=== PATIENT | female | born 1990 | race Caucasian/White ===

== ENCOUNTER 2019-05-17 14:23 | Emergency (ER) | payer SELFPAY ==
[~2019-05-17] VITALS: Ht 162.6 cm; Wt 63.8 kg
--- NOTE | 2019-05-17 14:39 | NUR ---
REPORT GIVEN TO DONN
[2019-05-17] MEDS ORDERED: LORazepam 2 MG/ML, 1ML ONE (14:52)
[2019-05-17] MEDS: LORazepam 2 MG/ML, 1ML IVPush PRN ×2 (14:58→15:28)
[2019-05-17] MEDS ORDERED: SODIUM CHLORIDE 0.9% 1,000ML IVBOLUS ONE (15:00)
[2019-05-17] MEDS ORDERED: SODIUM CHLORIDE FLUSH 10ML SYR IVF ONE (15:00)
[2019-05-17] MEDS ORDERED: THIAMINE 100 MG in SODIUM CHLORIDE 0.9% 50 ML IVPB ONE (15:00)
[2019-05-17 15:06] LABS: BASOPHILS # (AUTO) 0.01 x10^3/uL (0-0.1); BASOPHILS % (AUTO) 0 % (0-1); EOSINOPHILS # (AUTO) 0.03 x10^3/uL (0-0.4); EOSINOPHILS % (AUTO) 1 % (1-7); LYMPHOCYTES # (AUTO) 0.62 x10^3/uL (1-3.4); LYMPHOCYTES % (AUTO) 14 % (22-44); MD NO; MEAN CORPUSCULAR HEMOGLOBIN 33.2 pg (27.0-34.8); MEAN CORPUSCULAR HGB CONC 33.3 g/dL (32.4-35.8); MEAN CORPUSCULAR VOLUME 99.5 fL (80-100); MEAN PLATELET VOLUME 6.9 fL (7.4-10.4); MONOCYTES # (AUTO) 0.34 x10^3/uL (0.2-0.8); MONOCYTES % (AUTO) 7 % (2-9); NEUTROPHILS # (AUTO) 3.57 x10^3/uL (1.8-6.8); NEUTROPHILS % (AUTO) 78 % (42-75); PLATELET COUNT 168 x10^3/uL (130-400); RED BLOOD COUNT 4.58 x10^6/uL (3.82-5.3)
[2019-05-17] MEDS ORDERED: DOTERRA PO (15:06)
[2019-05-17] MEDS ORDERED: SPIROLINA PO (15:06)
[2019-05-17] MEDS ORDERED: CHOL40002 PO (15:06)
[2019-05-17] MEDS ORDERED: MAGNESIUM PO (15:06)
[2019-05-17 15:15] LABS: ALBUMIN 3.9 g/dL (3.4-5.0); ANION GAP 19 mmol/L (5-15); CALCIUM 8.7 mg/dL (8.5-10.1); CHLORIDE 102 mmol/L (98-107)
[2019-05-17 15:18] LABS: ALANINE AMINOTRANSFERASE 91 U/L (12-78); ALKALINE PHOSPHATASE 78 U/L (45-117); CREATININE 0.76 mg/dL (0.55-1.02); TOTAL PROTEIN 7.3 g/dL (6.4-8.2)
--- NOTE | 2019-05-17 15:43 | NUR ---
SEIZURE PRECAUTIONS IN PLACE. CALL LIGHT WITHIN REACH. MOTHER AT BEDSIDE.
--- NOTE | 2019-05-17 16:58 | NUR ---
PT RESTING IN BED FLUIDS INFUSING IN CARE OF MOM. SEIZURE PRECS IN PLACE.
--- NOTE | 2019-05-17 16:58 | NUR ---
REPORT FROM DONN BRIAN.
[2019-05-17 17:33] VITALS: BP 127/57
--- NOTE | 2019-05-17 17:33 | NUR ---
PT TO BE DC AFTER IVF. SAL AWARE OF VSS.
== END 2019-05-17 18:05 | disposition home or self-care (01) ==
LOC: ED 17:30
DX: S00.512A Abrasion of oral cavity, initial encounter (principal); R56.9 Unspecified convulsions; F10.239 Alcohol dependence with withdrawal, unspecified; F17.200 Nicotine dependence, unspecified, uncomplicated; W22.8XXA Striking against or struck by other objects, initial encounter; Y93.89 Activity, other specified; Y92.89 Other specified places as the place of occurrence of the external cause; Y99.8 Other external cause status; Y90.9 Presence of alcohol in blood, level not specified
CPT/HCPCS: 36415; 70450; 80053; 80307; 83690; 85025; 93005; 96365; 96366; 96375; 99285; J2060; J3411; J7030

== ENCOUNTER 2019-05-30 09:50 | Inpatient (IN) | payer MEDICAID, OTHER ==
[~2019-05-30] VITALS: Ht 162.6 cm; Wt 77.4 kg
[~2019-05-30 09:50] MED LIST: CHOL40002 PO; DOTERRA PO; MAGNESIUM PO; SPIROLINA PO
--- NOTE | 2019-05-30 10:30 | NUR ---
while in ct, post ct, pt had a witnessed grand mal seizure and rapid called over head pt given 2 mg ativan iv and returned to the ed pt post ictal in ct and remaind same on return to the ed
[2019-05-30] MEDS ORDERED: LORazepam 2 MG/ML, 1ML ONE ×2 (10:34→11:35)
--- NOTE | 2019-05-30 10:42 | NUR ---
RESPONDED TO THIS PATIENT'S DISTRESS IN THE LOBBY. C-COLLAR PLACED WITH STRICT C-SPINE PRECAUTION. LOGROLLED WITH 4 OTHER PRESONNEL. 6 PERSON LIFT TECHNIQUE TO THE GURNEY. STRAIGHT BACK TO TRAUMA 4.
--- NOTE | 2019-05-30 10:49 | NUR ---
TASK RN NOTE: PT MOVED TO TRAUMA 4, EVALUATED IMMEDIATELY BY KALYN MARTELL. PT PLACED IN YELLOW GOWN, C COLLAR REMOVED PER KALYN MARTELL'S ORDER. PT ATTACHED TO ALL MONTIORS. PIV ESTABLISHED BY EDTA. CLINICAL SCREEN COMPLETED, REPORT GIVEN TO PRIMARY RN SUSANNAH AT BEDSIDE.
--- NOTE | 2019-05-30 10:55 | NUR ---
PT TO CT AT THIS TIME
[2019-05-30 10:58] LABS: MEAN CORPUSCULAR HEMOGLOBIN 33.1 pg (27.0-34.8); MEAN CORPUSCULAR HGB CONC 33.1 g/dL (32.4-35.8); MEAN CORPUSCULAR VOLUME 99.9 fL (80-100); MEAN PLATELET VOLUME 7.7 fL (7.4-10.4); PLATELET COUNT 497 x10^3/uL (130-400); RED BLOOD COUNT 4.25 x10^6/uL (3.82-5.3); RED CELL DISTRIBUTION WIDTH 15.6 % (9.6-15.2)
[2019-05-30] MEDS ORDERED: LIDOCAINE-MPF 1%, 5ML INFIL ONE (11:00)
[2019-05-30] MEDS ORDERED: DIPH,PERTUSS(ACELL),TET VAC/PF 0.5 ML IM-VACC ONE ×3 (11:00→11:36)
[2019-05-30 11:10] LABS: ALANINE AMINOTRANSFERASE 44 U/L (12-78); ALBUMIN 3.6 g/dL (3.4-5.0); ANION GAP 13 mmol/L (5-15); CHLORIDE 106 mmol/L (98-107); CREATININE 0.88 mg/dL (0.55-1.02)
[2019-05-30 11:12] LABS: ALKALINE PHOSPHATASE 49 U/L (45-117); BILIRUBIN,TOTAL 0.1 mg/dL (0.2-1.0); TOTAL PROTEIN 7.4 g/dL (6.4-8.2)
[2019-05-30] MEDS ORDERED: LORazepam 2 MG/ML, 1ML IVPush ONE (11:30)
[2019-05-30] MEDS ORDERED: LIDOCAINE-MPF 1%, 5ML ONE (11:35)
[2019-05-30] MEDS ORDERED: L.E.T SOLUTION TP ONE (11:36)
[2019-05-30] MEDS ORDERED: LIDOCAINE 1%-EPI 1:100K, 20ML ONE (11:39)
[2019-05-30 11:44] LABS: MD YES
[2019-05-30 11:46] LABS: <PLATELET ESTIMATE> INCREASED; ANISOCYTOSIS 1+; BAND#(MANUAL) 0.47 x10^3/uL; BANDS%(MANUAL) 4 % (0-7); LYMPH#(MANUAL) 0.94 x10^3/uL (1-3.4); LYMPHS% (MANUAL) 8 % (22-44); MONOS#(MANUAL) 0.71 x10^3/uL (0.3-2.7); MONOS% (MANUAL) 6 % (2-9); SEG#(MANUAL) 9.68 x10^3/uL (1.8-6.8); SEGS% (MANUAL) 82 % (42-75)
[2019-05-30 11:47] LABS: <PLT MORPHOLOGY> NORMAL PLT MORPH
--- NOTE | 2019-05-30 11:54 | NUR ---
dr keys spoke with dr puentes
[2019-05-30] MEDS ORDERED: LEVETIRACETAM 1,000 MG in SODIUM CHLORIDE 0.9% 100 ML IV ONE (12:00)
[2019-05-30] MEDS ORDERED: LEVETIRACETAM 750 MG in SODIUM CHLORIDE 0.9% 100 ML IV ONE (12:00)
--- NOTE | 2019-05-30 13:11 | NUR ---
lacs closed report to koki avendaño moved to 17
--- NOTE | 2019-05-30 14:04 | NUR ---
SEIZURE PRECAUTIONS IN PLACE. PT TO BEDSIDE COMMODE AND TOLERATED WELL. PT TALKING WITH FAMILY ON PHONE
[2019-05-30 14:10] LABS: BARBITURATE SCREEN, URINE Negative (Negative); BENZODIAZEPINE SCREEN, URINE Negative (Negative); CANNABINOID SCREEN, URINE Positive (Negative); COCAINE SCREEN, URINE Negative (Negative); METHADONE SCREEN, URINE Negative (Negative); OPIATE SCREEN, URINE Negative (Negative)
[2019-05-30 14:11] LABS: AMPHETAMINE SCREEN, URINE Negative (Negative)
--- NOTE | 2019-05-30 14:44 | NUR ---
LUNCH RN: PT SLEEPING IN BED, JOHN. VSS AT THIS TIME. CALL LIGHT WITHIN REACH
[2019-05-30] MEDS ORDERED: DOCUSATE 100 MG CAPSULE PO PRN (16:30)
[2019-05-30] MEDS ORDERED: BISACODYL 10 MG SUPP PR PRN (16:30)
[2019-05-30] MEDS ORDERED: NICOTINE 7 MG/24 HR PATCH.TD24 TD SCH (16:30)
[2019-05-30] MEDS ORDERED: PROMETHAZINE 25 MG/ML, 1ML IM PRN (16:30)
[2019-05-30] MEDS ORDERED: ONDANSETRON 2MG/ML, 2ML IVPush PRN (16:30)
[2019-05-30] MEDS ORDERED: hydrALAzine 20 MG/ML, 1ML IVPush PRN (16:30)
[2019-05-30] MEDS ORDERED: POLYETHYLENE GLYCOL 17 GM PACKET PO PRN (16:30)
[2019-05-30] MEDS ORDERED: morphine SULFATE 10 MG/ML, 1ML IVPush PRN (16:30)
[2019-05-30] MEDS ORDERED: ONDANSETRON ODT 4 MG PO PRN (16:30)
[2019-05-30] MEDS ORDERED: OXYcodone IR 5MG TABLET PO PRN (16:30)
[2019-05-30 17:30] LABS: FREE T4 (FREE THYROXINE) 0.86 ng/dL (0.76-1.46)
[2019-05-30 17:45] VITALS: BP 103/70
[2019-05-30] MEDS: SODIUM CHLORIDE 0.9% 1,000 ML IV SCH (17:57)
[2019-05-30] MEDS: ACETAMINOPHEN 325 MG TABLET PO PRN ×2 (17:57→22:20)
[2019-05-30 20:21] VITALS: BP 101/65
[2019-05-30] MEDS: LEVETIRACETAM 500 MG TABLET PO SCH (20:29)
[2019-05-31 00:29] VITALS: BP 100/62
[2019-05-31] MEDS: SODIUM CHLORIDE 0.9% 1,000 ML IV SCH (04:07)
[2019-05-31 04:26] LABS: MICROSCOPIC AUTO
[2019-05-31 04:40] LABS: CULTURE INDICATED? YES
[2019-05-31 05:00] LABS: BASOPHILS # (AUTO) 0.05 x10^3/uL (0-0.1); BASOPHILS % (AUTO) 1 % (0-1); EOSINOPHILS # (AUTO) 0.07 x10^3/uL (0-0.4); EOSINOPHILS % (AUTO) 1 % (1-7); LYMPHOCYTES # (AUTO) 1.47 x10^3/uL (1-3.4); LYMPHOCYTES % (AUTO) 27 % (22-44); MD NO; MEAN CORPUSCULAR HEMOGLOBIN 33.2 pg (27.0-34.8); MEAN CORPUSCULAR HGB CONC 33.5 g/dL (32.4-35.8); MEAN CORPUSCULAR VOLUME 99.2 fL (80-100); MEAN PLATELET VOLUME 7.7 fL (7.4-10.4); MONOCYTES # (AUTO) 0.61 x10^3/uL (0.2-0.8); MONOCYTES % (AUTO) 11 % (2-9); NEUTROPHILS # (AUTO) 3.32 x10^3/uL (1.8-6.8); NEUTROPHILS % (AUTO) 60 % (42-75); PLATELET COUNT 426 x10^3/uL (130-400); RED BLOOD COUNT 4.03 x10^6/uL (3.82-5.3); RED CELL DISTRIBUTION WIDTH 15.6 % (9.6-15.2)
[2019-05-31 05:08] LABS: ALBUMIN 3.2 g/dL (3.4-5.0); ANION GAP 7 mmol/L (5-15); CALCIUM 8.3 mg/dL (8.5-10.1); CHLORIDE 110 mmol/L (98-107)
[2019-05-31 05:13] LABS: ALANINE AMINOTRANSFERASE 31 U/L (12-78); ALKALINE PHOSPHATASE 43 U/L (45-117); BILIRUBIN,TOTAL 0.7 mg/dL (0.2-1.0); CHOL/HDL RATIO 2.4; CHOLESTEROL, TOTAL 166 mg/dL (140-239); CREATININE 0.55 mg/dL (0.55-1.02); HDL CHOL % 42 % (28-40); HDL CHOLESTEROL (DIRECT) 70 mg/dL (40-60); LDL CHOLESTEROL,CALCULATED 84 mg/dL (54-169); LDL/HDL RATIO 1.2 (0.5-3.0); TOTAL PROTEIN 6.4 g/dL (6.4-8.2); TRIGLYCERIDES 58 mg/dL (50-200); VLDL CHOLESTEROL 12 mg/dL (0-25)
[2019-05-31 06:53] VITALS: BP 114/75
[2019-05-31] MEDS: LEVETIRACETAM 500 MG TABLET PO SCH (08:04)
[2019-05-31] MEDS ORDERED: LEVE500T53 PO (12:34)
== END 2019-05-31 13:46 | disposition home or self-care (01) | DRG 42 ==
LOC: ED 11:59 → EDIP 15:37 → 4WST 17:29 → DCLOUNGE 05-31 13:38
PROVIDERS: ADMIT Internal Medicine; ATTEND Hospitalist
PROC: 0KQ00ZZ Repair Head Muscle, Open Approach (ICD-10-PCS; principal; 2019-05-30)
PROC: 0JQ10ZZ Repair Face Subcutaneous Tissue and Fascia, Open Approach (ICD-10-PCS; 2019-05-30)
DX: G40.409 Other generalized epilepsy and epileptic syndromes, not intractable, without status epilepticus (principal); F12.10 Cannabis abuse, uncomplicated; F17.210 Nicotine dependence, cigarettes, uncomplicated; F32.9 Major depressive disorder, single episode, unspecified; F43.10 Post-traumatic stress disorder, unspecified; G40.909 Epilepsy, unspecified, not intractable, without status epilepticus; S01.412A Laceration without foreign body of left cheek and temporomandibular area, initial encounter; S01.81XA Laceration without foreign body of other part of head, initial encounter; F10.10 Alcohol abuse, uncomplicated; Y90.9 Presence of alcohol in blood, level not specified; Z23 Encounter for immunization; Z79.899 Other long term (current) drug therapy
CPT/HCPCS: 36415; 70450; 80053; 80061; 80307; 81001; 82306; 82550; 82607; 83036; 83735; 84439; 84443; 84703; 85025; 87086; 90471; 90715; 93005; 95819; 96365; 96366; 96375; 99285; G0378; J1953; J2060; J7030